=== PATIENT | female | born 1985 | race Caucasian/White ===

== ENCOUNTER → 2016-09-02 | Outpatient (CLI) | payer OTHER | LOC: CIMAGING 09:37 | PROVIDERS: ATTEND Family Medicine | DX: M54.2 Cervicalgia (principal); R20.2 Paresthesia of skin | CPT/HCPCS: 72040-PO ==

== ENCOUNTER → 2018-04-24 | Outpatient (CLI) | payer OTHER | LOC: FIMAGING 09:45 | PROVIDERS: ATTEND Advanced Practice Midwife | DX: O09.522 Supervision of elderly multigravida, second trimester (principal); Z3A.21 21 weeks gestation of pregnancy ==

== ENCOUNTER 2018-08-07 18:45 | Observation (INO) | payer OTHER ==
--- NOTE | 2018-08-07 19:47 | PDGENHP ---
History and Physical History and Physical: Care: [facility] HPI: Kavya Cherry is a 32yo with IUP @ 36-1 weeks that presents to L&D for repeat NST/BPP. Was seen in office on 08/06/18 for decreased FM and was noted to have 8/10 BPP. She reports lots of movement today. She denies any contractions, LOF, VB. EDC: 09/03/2018 which is based on LMP which is known and consistent with Ultrasound at 13weeks. Her is complicated by: unplanned , depression/anxiety, AMA, thyroid nodule Review of Systems: Constitutional: Denies any fever, chills, or fatigue HEENT: denies any visual changes, difficulty swallowing, hearing loss Cardiovascular: Denies any chest pain, palpitations, leg swelling Respiratory: denies any cough, wheezing, or shortness of breathe GI: Denies any nausea, vomiting, diarrhea, constipation : denies any dysuria, urgency, frequency, vaginal bleeding Musculoskeletal: denies any muscle or bone pain Skin: denies any rashes Neuro: denies any headache, seizures, lightheadedness, dizziness, or loss of consciousness Psychiatric: denies any depression, anxiety, or SI/HI thoughts HISTORY: Previous OB history: x3 Past medical history: depression/anxiety Past surgical history: appendectomy 2006 Social: Denies any alcohol, tobacco, or drug use. -3 children Family history: Not relevant Medications: PNV, lexapro Allergies (list reaction): NKDA LABS: Rh: O+ ABS: Neg Rubella: Immune HbsAg: NR HIV: NR VDRL: NR 1hr: 95 GC: Neg Chlamydia: Neg GBS: unknown PHYSICAL EXAM: Constitutional: WN, A&Ox3 HEENT: normocephalic atraumatic, supple Skin: Warm, dry, intact Heart: RRR, no murmur Chest: CTA-B Abdomen: Soft, nontender, gravid SVE: deferred Extremities: no edema, negative homans sign Neuro: grossly normal Psych: normal affect assessment: FHT baseline 125 +accels, no decels, moderate variability Contractions: toco irregular BSUS done: MVP 3.2cm, vtx presentation Assessment: * 32yo with IUP@ 36-1wks * BPP 8/10 (done by Arleen Hart MD) * MVP 3.2cm * Cat 1 FHR tracing Plan: * d/c home * f/u next sched appt in office 08/15/18 * strict FKC and labor prec discussed * cont PO hydration * will call with any concerns * Reviewed with Arleen Hart- agrees with plan of care Today's visit was approximately 90 min, of which >50% of visit 60 min, was spent face to face with pt on direct counseling/coordination of care.
== END 2018-08-07 20:40 | disposition home or self-care (01) ==
LOC: FLD 18:45
PROVIDERS: ADMIT Advanced Practice Midwife; ATTEND Advanced Practice Midwife
DX: O36.8130 Decreased fetal movements, third trimester, not applicable or unspecified (principal); Z3A.36 36 weeks gestation of pregnancy
CPT/HCPCS: 59025; G0378

== ENCOUNTER 2018-08-30 18:50 | Inpatient (IN) | payer OTHER ==
[~2018-08-30 18:50] MED LIST: LIDOCAINE 1% 300 MG/30 ML SDV ONE; METHYLERGONOVINE MAL 0.2 MG/ML INJ ONE; MISOPROSTOL 200 MCG TAB ONE; OLIVE OIL 118 ML BTL MISC ONE; OXYTOCIN 10 UNIT/ML VIAL ONE; OXYTOCIN/RINGERS LACTATE 20 UNIT/1,000 ML BAG IV ONE; TERBUTALINE SULFATE 1 MG/ML VIAL ONE
[2018-08-30] MEDS ORDERED: EPSOM SALT 454 GM TP PRN (19:05)
[2018-08-30] MEDS ORDERED: AMMONIA AROMATIC 1 EACH AMP IH PRN (19:05)
[2018-08-30] MEDS ORDERED: MISOPROSTOL 200 MCG TAB PO PRN (19:05)
[2018-08-30] MEDS ORDERED: LR 1,000 ML IV PRN (19:05)
[2018-08-30] MEDS ORDERED: IBUPROFEN 600 MG TAB PO PRN (19:05)
[2018-08-30] MEDS ORDERED: LIDOCAINE 1% 300 MG/30 ML SDV SC PRN (19:05)
[2018-08-30] MEDS ORDERED: OLIVE OIL 118 ML BTL MISC PRN (19:05)
[2018-08-30] MEDS ORDERED: OXYTOCIN/RINGERS LACTATE 1,000 ML IV PRN (19:05)
[2018-08-30] MEDS ORDERED: TERBUTALINE SULFATE 1 MG/ML VIAL IV PRN (19:05)
[2018-08-30 19:25] LABS: PLATELET COUNT 175 10^3/uL (150-400)
[2018-08-30] MEDS ORDERED: fentaNYL 100 MCG/2 ML INJ ONE (19:26)
[2018-08-30] MEDS ORDERED: SIMETHICONE 80 MG TAB CHEW PO PRN (20:02)
[2018-08-30] MEDS ORDERED: HYDROCORTISONE 0.5% CREAM TP PRN (20:02)
[2018-08-30] MEDS ORDERED: ACETAMINOPHEN 325 MG TAB PO PRN (20:02)
[2018-08-30] MEDS ORDERED: oxyCODONE IR 5 MG TAB PO PRN (20:02)
--- NOTE | 2018-08-30 20:02 | PDGENHP ---
History and Physical History and Physical: H&P written post delivery due to precipitous labor and delivery Care: [facility] HPI: Kavya Cheryr is a 33yo with IUP@ 39-3 weeks that presents to L&D with complaints of contractions since 1600, worse since 1700. She denies any LOF , VB. Reports +FM. EDC: 09/03/2018 which is based on LMP which is known and consistent with Ultrasound at 13 weeks. Her is complicated by: AMA, unplanned , thyroid nodule, depression, severe itching in LE's Review of Systems: Constitutional: Denies any fever, chills, or fatigue HEENT: denies any visual changes, difficulty swallowing, hearing loss Cardiovascular: Denies any chest pain, palpitations, leg swelling Respiratory: denies any cough, wheezing, or shortness of breathe GI: Denies any nausea, vomiting, diarrhea, constipation : denies any dysuria, urgency, frequency, vaginal bleeding Musculoskeletal: denies any muscle or bone pain Skin: denies any rashes Neuro: denies any headache, seizures, lightheadedness, dizziness, or loss of consciousness Psychiatric: denies any depression, anxiety, or SI/HI thoughts HISTORY: Previous OB history: x3, increased PP bleeding with G2/G3 Past medical history: depression (mostly related unplanned ), enlarged nodule on thyroid Past surgical history: appendectomy Social: Denies any alcohol, tobacco, or drug use. to [place], 3 kids [facility] Family history: Not relevant Medications: PNV Allergies (list reaction): NKDA LABS: Rh: O+ ABS: Neg Rubella: Immune HbsAg: NR HIV: NR VDRL: NR 1hr: 95 GC: Neg Chlamydia: Neg Pap: Normal GBS: negative PHYSICAL EXAM: Constitutional: WN, A&Ox3 HEENT: normocephalic atraumatic, supple Skin: Warm, dry, intact Heart: RRR, no murmur Chest: CTA-B Abdomen: Soft, nontender, gravid SVE: 8/80/-1 Extremities: no edema, negative homans sign Neuro: grossly normal Psych: normal affect assessment: FHT baseline 130 +accels, no decels, moderate variability Contractions: toco q 2 Assessment: * 33yo with IUP@ 39-3wks * active labor * GBS Negative * Cat 1 FHR Plan: * Admit to L&D * anticipate Today's visit was approximately 30 min, of which >50% of visit 20 min, was spent face to face with pt on direct counseling/coordination of care.
--- NOTE | 2018-08-30 20:06 | OBDEL ---
Info Type: Vaginal Presentation at Delivery: Vertex L&D Analgesia/Anesthesia Type: None GBS+: No Indications for Delivery: Spontaneous Labor, SROM Vaginal Delivery - Delivery Provider Delivery Physician/CNM: April Hamilton - Labor and Delivery Onset of Contractions Date: 08/30/18 Onset of Contractions Time: 16:00 Onset of Contractions Type: Spontaneous Rupture of Membranes Date: 08/30/18 Rupture of Membranes Time: 19:14 Rupture of Membranes Type: Spontaneous Amniotic Fluid Color: Clear Dilation Complete Date: 08/30/18 Placenta Delivery Date: 08/30/18 Placenta Delivery Time: 19:20 Total Hours of Labor: 3 Vaginal Sponge Count Correct: Yes Vaginal Needle Count Correct: Yes Vaginal Sweep Performed: Yes EBL: 450 Delivery Events: None Delivery Comment: precipitous delivery. baby delivered in SHY position. Spontaneous cry. baby to mothers chest. [place] Data KUNAL: 09/03/18 Gestational Age: 39 week(s) and 3 day(s) Wong Delivery Date: 08/30/18 Delivery Time: 19:16 Sex of Infant: Female Score (1 Min): 8 Score (5 Min): 9 ICD10 Worksheet Patient Problems: Problems Problem Status Onset Precipitate labor, with delivery Acute (normal spontaneous vaginal delivery) Acute - ICD10 Problem Qualifiers (1) Precipitate labor, with delivery
[2018-08-30] MEDS ORDERED: fentaNYL 100 MCG/2 ML INJ IVP ONE (20:22)
[2018-08-30] MEDS ORDERED: METHYLERGONOVINE MAL 0.2 MG/ML INJ IM ONE (20:23)
[2018-08-30] MEDS ORDERED: fentaNYL 100 MCG/2 ML INJ IV ONE (23:30)
[2018-08-30] MEDS ORDERED: TRANEXAMIC ACID 1,000 MG in NS 100 ML IV ONE (23:57)
--- NOTE | 2018-08-31 00:08 | SOAPPROG ---
SOAP Progress Note Assessment/Plan: Assessment: 33yo s/p PPH approx 600mL h/p PPH x2 No evidence of RPOC seen on BSUS Plan: cont to monitor bleeding closely TXA ordered at this time Dr Terry aware 08/30/18 23:58 Subjective: Pt reports normal bleeding, RN reports increased bleeding and clots. Pt denies any pain. She denies any lightheadedness or faintness. She is able to ambulate without difficulty. Objective: Vital Signs Temp Pulse Resp BP Pulse Ox 36.7 C 77 16 108/73 96 08/30/18 22:30 08/30/18 22:30 08/30/18 22:30 08/30/18 22:30 08/30/18 22:30 Laboratory Results 08/30/18 19:02 08/29/18 08/30/18 08/31/18 05:59 05:59 05:59 Intake Total 1250 Output Total 734 Balance 516 Physical Exam - Physical Exam General Appearance: WD/WN, alert, no apparent distress Pelvic Exam: vaginal bleeding (minimal ), other (uterus firm @ U-3) Skin: normal color, warm/dry Neuro/Psych: alert, normal mood/affect, oriented x 3 ICD10 Worksheet Patient Problems: Problems Problem Status Onset Precipitate labor, with delivery Acute (normal spontaneous vaginal delivery) Acute - ICD10 Problem Qualifiers (1) Precipitate labor, with delivery
[2018-08-31] MEDS ORDERED: OXYTOCIN/RINGERS LACTATE 20 UNIT/1,000 ML BAG IV ONE (00:22)
[2018-08-31] MEDS: IBUPROFEN 600 MG TAB PO PRN ×3 (05:19→18:08)
[2018-08-31] MEDS: ESCITALOPRAM OXALATE 10 MG TAB PO SCH (08:28)
[2018-08-31] MEDS: DOCUSATE SODIUM 100 MG CAP PO PRN (08:28)
--- NOTE | 2018-08-31 10:24 | OBPP ---
Progress Note Assessment/Plan: Assessment: 33 y/o p4 s/p , pp hemorrhage ppd #1 anemia VSS, ff, bleeding wnl going well Plan: routine pp care daily ferrous sulfate anticipate d/c tomorrow 08/31/18 10:22 Subjective/ Course: 08/31/18 10:24 Patient is tired but doing well this morning. Reports lochia to be light, pain controlled with oral medication, tolerating regular diet and voiding. is going well. Objective: 08/31/18 09:25 Patient ABO/Rh O POSITIVE 08/30/18 19:02 Temp Pulse Resp BP Pulse Ox 36.4 C 72 14 106/54 L 95 08/31/18 08:23 08/31/18 08:23 08/31/18 08:23 08/31/18 08:23 08/31/18 08:23 Uterine Position/Fundal Height: Umbilicus -1 Uterine Tone: Firm
[2018-08-31] MEDS: FERROUS SULFATE 325 MG TAB PO SCH (12:21)
[2018-09-01] MEDS: DOCUSATE SODIUM 100 MG CAP PO PRN ×3 (00:01→09:25)
[2018-09-01] MEDS: IBUPROFEN 600 MG TAB PO PRN ×3 (06:24→12:13)
[2018-09-01] MEDS: ESCITALOPRAM OXALATE 10 MG TAB PO SCH (09:25)
[2018-09-01] MEDS: FERROUS SULFATE 325 MG TAB PO SCH (09:25)
[2018-09-01 10:16] VITALS: BP 97/66
--- NOTE | 2018-09-01 11:42 | OBGCSDC ---
General Delivery Information - General Info : 4 Para: 3 Abortions: 0 Type: Vaginal L&D Analgesia/Anesthesia Type: None Admission Date: 08/30/18 Labs: Patient ABO/Rh O POSITIVE 08/30/18 19:02 Hct 35.2 % (38.0-47.0) L 08/31/18 09:25 Temp Pulse Resp BP Pulse Ox 09/01/18 10:15 36.4 C 72 16 97/66 L 97 09/01/18 06:26 36.7 C 80 16 105/61 97 08/31/18 20:00 36.6 C 64 14 115/67 96 08/31/18 17:23 36.6 C 73 14 110/70 96 - Hospital Course : 08/31/18 10:24 Patient is tired but doing well this morning. Reports lochia to be light, pain controlled with oral medication, tolerating regular diet and voiding. is going well. 09/01/18 11:41 doing well. breast feeding well. bleeding is light. voiding without difficulty. Vaginal - Delivery Provider Delivery Physician/CNM: April Hamilton - Diagnosis Labor: Spontaneous Rupture of Membranes Type: Spontaneous Amniotic Fluid Color: Clear Delivery Events: None - Delivery EBL: 450 [place] Data KUNAL: 09/03/18 Gestational Age: 39 week(s) and 5 day(s) Wong Delivery Date: 08/30/18 Delivery Time: 19:16 Sex of Infant: Female [place] Weight (gm): 3160 g Score (1 Min): 8 Score (5 Min): 9 Discharge Information - Discharge Information Instruction/Follow Up: Two Weeks, Four Weeks, Six Weeks
== END 2018-09-01 12:15 | disposition home or self-care (01) | DRG 806 ==
LOC: FLD 18:50 → FOB 22:30
PROVIDERS: ADMIT Advanced Practice Midwife; ATTEND Advanced Practice Midwife
PROC: 10E0XZZ Delivery of Products of Conception, External Approach (ICD-10-PCS; principal; 2018-08-30)
DX: O62.3 Precipitate labor (principal); O72.1 Other immediate postpartum hemorrhage; Z3A.39 39 weeks gestation of pregnancy; Z37.0 Single live birth
CPT/HCPCS: J2210; J2590; J3010; J3105